=== PATIENT | male | born 1960 | race Hispanic/Latino ===

== ENCOUNTER 2017-11-23 22:40 | Emergency (ER) | payer BC ==
[~2017-11-23] VITALS: Ht 165.1 cm; Wt 66.2 kg
[~2017-11-23 22:40] MED LIST: AMOXICILLIN875 MG OR; CIPRO500 MG OR; LISINOP/HCTZ1 TAB PO
[2017-11-23] MEDS ORDERED: DOXYCYCL HYC100 MG PO ×2 (23:30→23:49)
[2017-11-23 23:58] VITALS: BP 141/71
== END 2017-11-23 23:59 | disposition home or self-care (01) | DRG 603 ==
LOC: ED 22:40
DX: L03.032 Cellulitis of left toe (principal); M25.475 Effusion, left foot

== ENCOUNTER 2018-01-17 04:46 | Observation (INO) | payer BC ==
[~2018-01-17] VITALS: Ht 165.1 cm; Wt 65.9 kg
[~2018-01-17 04:46] MED LIST changes: +DOXYCYCL HYC100 MG PO
[2018-01-17 05:24] LABS: HEMATOCRIT 39.8 % (39.0-50.0); IMMATURE GRANULOCYTES 0.2 % (0.0-5.0); MEAN CELL VOLUME 93.4 fL CALC (80.0-100.0); MEAN CORPUSCULAR HGB 31.7 pG CALC (26.0-32.0); MEAN CORPUSCULAR HGB CONC 33.9 g/L CALC (32.0-36.0); NEUT# 4.63 thou/uL (1.82-7.42); RED BLOOD COUNT 4.26 mill/uL (4.70-6.10); RED CELL DISTRI WIDTH 11.7 % (11.5-15.5); URINE BILIRUBIN - DIPSTICK NEGATIVE (NEGATIVE); URINE BLOOD DIPSTICK NEGATIVE (NEGATIVE); URINE COLOR YELLOW; URINE GLUCOSE - DIPSTICK NEGATIVE (NEGATIVE); URINE KETONE NEGATIVE (NEGATIVE); URINE LEUK ESTERASE NEGATIVE (NEGATIVE); URINE NITRITE - DIPSTICK NEGATIVE (Negative); URINE PROTEIN - DIPSTICK NEGATIVE (NEG-TRACE); URINE UROBILINOGEN - DIPSTICK 0.2 E.U./dL (0.2)
[2018-01-17 05:31] LABS: URINE CLARITY CLEAR
[2018-01-17 05:37] LABS: ALBUMIN 4.4 g/dL (3.2-5.0); ALKALINE PHOSPHATASE 68 u/l (38-126); ANION GAP 16 (6-22 (CALC)); BILIRUBIN, TOTAL 0.6 mg/dL (0.0-1.4); BUN 20 mg/dL (9-20); BUN/CREATININE RATIO 27 (12-20 (CALC)); CARBON DIOXIDE 31 mmol/l (22-30); CHLORIDE 101 mmol/l (95-108); CREATININE 0.8 mg/dL (0.7-1.3); GFR > 60 ML/MIN (>=60 (CALC)); GFR FOR AFR.AMER. > 60 ML/MIN (>=60 (CALC)); POTASSIUM 4.2 mmol/l (3.5-5.1); SGOT/AST 24 u/l (17-59); SGPT/ALT 44 u/l (21-72); SODIUM 144 mmol/l (137-146); TOTAL PROTEIN 7.4 g/dL (6.3-8.2)
[2018-01-17 06:03] LABS: HEMOGLOBIN 13.5 g/dl (14.0-18.0)
[2018-01-17 07:52] VITALS: BP 140/74
[2018-01-17 09:39] LABS: CHOLESTEROL HDL RATIO 3.8 (<4.4 (CALC))
[2018-01-17 15:30] VITALS: BP 110/59
[2018-01-17] MEDS ORDERED: ASPIRIN LOW DOS81 MG PO (17:33)
[2018-01-17] MEDS ORDERED: AMLODIPINE5 MG PO (17:33)
[2018-01-17] MEDS ORDERED: ALTOPREV20 MG PO (17:34)
[2018-01-17] MEDS ORDERED: GLIPIZIDE XL5 MG PO (17:34)
[2018-01-17] MEDS ORDERED: LISINOP/HCTZ1 TA1 PO (17:37)
[2018-01-17 19:55] VITALS: BP 142/74
[2018-01-18 04:07] VITALS: BP 116/56
[2018-01-18 08:15] VITALS: BP 127/56
[2018-01-18 08:58] VITALS: BP 127/56
[2018-01-18] MEDS ORDERED: PREDNISONE10 MG PO (12:26)
[2018-01-18] MEDS ORDERED: HYDROCHLOROT12.5 M1 PO (12:26)
[2018-01-18] MEDS ORDERED: ZYRTEC10 MG PO (12:28)
== END 2018-01-18 13:57 | disposition home or self-care (01) | DRG 916 ==
LOC: ED 04:46 → ED-I 06:33 → ED 06:46 → MS2 06:47
PROVIDERS: Emergency Medicine; Nurse Practitioner Family; ADMIT Internal Medicine; ATTEND Internal Medicine
DX: T78.3XXA Angioneurotic edema, initial encounter (principal); I10 Essential (primary) hypertension; E11.9 Type 2 diabetes mellitus without complications; E78.5 Hyperlipidemia, unspecified; Z79.84 Long term (current) use of oral hypoglycemic drugs
CPT/HCPCS: G0378